=== PATIENT | male | born 1935 | race Caucasian/White ===

== ENCOUNTER → 2019-10-29 | Outpatient (CLI) | payer MEDICARE | END | disposition home or self-care (01) | LOC: RAH 12:32 | PROVIDERS: ATTEND Family Medicine | DX: J47.9 Bronchiectasis, uncomplicated (principal); I51.7 Cardiomegaly; M95.4 Acquired deformity of chest and rib; R04.2 Hemoptysis | CPT/HCPCS: 71250 ==

== ENCOUNTER 2020-10-01 13:08 | Emergency (ER) | payer MEDICARE ==
[2020-10-01 13:44] LABS: APPEARANCE,URINE Clear (CLEAR); BILIRUBIN,URINE Negative (NEGATIVE); COLOR,URINE Yellow (YELLOW); GLUCOSE, URINE (UA) Negative (NEGATIVE); KETONES,URINE Negative (NEGATIVE); LEUKOCYTE ESTERASE ,URINE Negative (NEGATIVE); NITRATE,URINE Negative (NEGATIVE); OCCULT BLOOD,URINE Negative (NEGATIVE); PROTEIN,URINE Negative (NEGATIVE); UROBILINOGEN,URINE 0.2 mg/dL (0.2-1.0)
[2020-10-01 13:53] LABS: BASOPHILS % (AUTO) 0.4 % (0.0-5.0); EOSINOPHILS % (AUTO) 0.4 % (0.0-8.0); HEMATOCRIT 34.6 % (42-54); LYMPHOCYTES % (AUTO) 10.9 % (21.0-51.0); MEAN CORPUSCULAR HEMOGLOBIN 34.4 pg (27.0-33.0); MEAN CORPUSCULAR HGB CONC 34.7 g/dL (32.0-36.0); MEAN CORPUSCULAR VOLUME 99.1 fL (79-99); MONOCYTES % (AUTO) 8.8 % (3.0-13.0); NEUTROPHILS % (AUTO) 79.1 % (40.0-77.0); PLATELET COUNT (AUTO) 143 K/uL (130-400); RED BLOOD CELL COUNT(AUTO) 3.49 MIL/uL (4.50-6.20); RED CELL DISTRIBUTION WIDTH 12.9 % (11.0-15.5); WHITE BLOOD COUNT (AUTO) 4.8 K/uL (4.8-10.8)
[2020-10-01 14:06] LABS: CREATININE 1.2 mg/dL (0.5-1.5); POTASSIUM 3.7 mmol/L (3.5-5.1)
[2020-10-01 14:11] LABS: ALBUMIN 4.2 g/dL (3.5-5.0); TOTAL PROTEIN, SERUM 7.1 g/dL (6.0-8.3)
== END 2020-10-01 15:00 | disposition home or self-care (01) ==
LOC: EDH 13:08
DX: R33.9 Retention of urine, unspecified (principal); I10 Essential (primary) hypertension; I50.9 Heart failure, unspecified
CPT/HCPCS: 36415; 51702; 80053; 81003; 85025

== ENCOUNTER → 2020-10-27 | Outpatient (CLI) | payer MEDICARE | END | disposition home or self-care (01) | LOC: RAH 10-25 10:47 | PROVIDERS: ATTEND Urology | DX: C61 Malignant neoplasm of prostate (principal); R80.9 Proteinuria, unspecified | CPT/HCPCS: 78306; A9503 ==

== ENCOUNTER → 2020-11-07 | Outpatient (CLI) | payer MEDICARE ==
[~2020-11-07] MED LIST: IOHEXOL 350 MG/ML 100ML INFUS..BTL IV ONE
== END | disposition home or self-care (01) ==
LOC: RAH 09:49
PROVIDERS: ATTEND Urology
DX: C61 Malignant neoplasm of prostate (principal); N28.1 Cyst of kidney, acquired; K40.90 Unilateral inguinal hernia, without obstruction or gangrene, not specified as recurrent; J47.9 Bronchiectasis, uncomplicated; M51.36 Other intervertebral disc degeneration, lumbar region; M16.12 Unilateral primary osteoarthritis, left hip
CPT/HCPCS: 74177; Q9967

== ENCOUNTER 2020-11-19 06:00 | Emergency (ER) | payer MEDICARE | END 2020-11-19 06:55 | disposition home or self-care (01) | LOC: EDH 06:00 | DX: T83.031A Leakage of indwelling urethral catheter, initial encounter (principal); I11.0 Hypertensive heart disease with heart failure; I50.9 Heart failure, unspecified; Z98.890 Other specified postprocedural states | CPT/HCPCS: 99281 ==

== ENCOUNTER 2021-01-04 07:18 | Day surgery (SDC) | payer MEDICARE ==
[2020-12-29 13:12] LABS: BASOPHILS % (AUTO) 0.4 % (0.0-5.0); EOSINOPHILS % (AUTO) 1.7 % (0.0-8.0); HEMATOCRIT 37.4 % (42-54); MEAN CORPUSCULAR HEMOGLOBIN 34.4 pg (27.0-33.0); MEAN CORPUSCULAR HGB CONC 33.7 g/dL (32.0-36.0); MEAN CORPUSCULAR VOLUME 102.2 fL (79-99); MONOCYTES % (AUTO) 6.5 % (3.0-13.0); NEUTROPHILS % (AUTO) 78.5 % (40.0-77.0); PLATELET COUNT (AUTO) 187 K/uL (130-400); RED BLOOD CELL COUNT(AUTO) 3.66 MIL/uL (4.50-6.20); RED CELL DISTRIBUTION WIDTH 12.9 % (11.0-15.5); WHITE BLOOD COUNT (AUTO) 7.8 K/uL (4.8-10.8)
[2020-12-29 13:20] LABS: CREATININE 1.3 mg/dL (0.5-1.5); POTASSIUM 4.5 mmol/L (3.5-5.1)
[2020-12-29 13:24] LABS: INR 1.48 (0.85-1.15); PROTHROMBIN TIME 15.6 SEC (9.6-11.6)
[2020-12-29 13:25] LABS: PARTIAL THROMBOPLASTIN TIME 27.5 SEC (26.3-35.5)
[2020-12-29 14:01] LABS: APPEARANCE,URINE Clear (CLEAR); BILIRUBIN,URINE Negative (NEGATIVE); COLOR,URINE Yellow (YELLOW); GLUCOSE, URINE (UA) Negative (NEGATIVE); KETONES,URINE Negative (NEGATIVE); LEUKOCYTE ESTERASE ,URINE Moderate (NEGATIVE); NITRATE,URINE Positive (NEGATIVE); OCCULT BLOOD,URINE Small (NEGATIVE); PROTEIN,URINE POS 1+ mg/dL (NEGATIVE)
[2020-12-29 14:10] LABS: BACTERIA,URINE Many /HPF (None Seen)
[2020-12-29 14:11] LABS: SQUAMOUS EPITHELIAL CELL,UR 0-2 /HPF (0-2)
[2021-01-03 14:35] VITALS: BP 155/75
[~2021-01-04] VITALS: Ht 182.9 cm; Wt 74.6 kg
[2021-01-04] VITALS (25 sets, daily range): BP systolic 131–161; BP diastolic 73–94
[2021-01-04] MEDS ORDERED: LACTATED RINGERS 1000ML 1,000 ML IV ONE ×2 (07:36→08:16)
[2021-01-04] MEDS ORDERED: GENTAMICIN SULFATE 240 MG in 0.9%NACL 100ML 100 ML IV SCH (08:00)
[2021-01-04] MEDS: CEFTRIAXONE 1G VIAL IVP SCH ×2 (08:20→09:15)
[2021-01-04] MEDS ORDERED: TADA5TAB PO (08:23)
[2021-01-04] MEDS ORDERED: furosemide PO (08:23)
[2021-01-04] MEDS ORDERED: levaquin PO (08:23)
[2021-01-04] MEDS ORDERED: LEVO50CA4 PO (08:23)
[2021-01-04] MEDS ORDERED: DIGO250T73 PO (08:23)
[2021-01-04] MEDS ORDERED: ENAL10TA18 PO (08:23)
[2021-01-04] MEDS ORDERED: ATEN25TA PO (08:23)
[2021-01-04] MEDS ORDERED: WARF3TAB59 PO (08:23)
[2021-01-04 08:36] LABS: INR 1.27 (0.85-1.15); PROTHROMBIN TIME 13.5 SEC (9.6-11.6)
[2021-01-04 08:37] LABS: PARTIAL THROMBOPLASTIN TIME 29.5 SEC (26.3-35.5)
[2021-01-04] MEDS ORDERED: DEXAMETHASONE SOD PHOSPHATE 10MG/ML 1ML VIAL ONE (08:40)
[2021-01-04] MEDS ORDERED: MIDAZOLAM HCL 1 MG/ML 2ML VIAL ONE (08:40)
[2021-01-04] MEDS ORDERED: SUCCINYLCHOLINE 200MG/10ML SYR ONE (08:40)
[2021-01-04] MEDS ORDERED: ONDANSETRON 4MG INJ ONE (08:40)
[2021-01-04] MEDS ORDERED: LIDOCAINE PF 100MG/5ML (2%) SYRINGE 5ML ONE (08:40)
[2021-01-04] MEDS ORDERED: PROPOFOL 10 MG/ML 20ML VIAL IV ONE (08:40)
[2021-01-04] MEDS ORDERED: FENTANYL CITRATE PF 50 MCG/1 ML 2ML VIAL ONE (08:41)
[2021-01-04] MEDS ORDERED: ROCURONIUM 10MG/1ML SYR 10 MG/ML ML ONE (08:41)
[2021-01-04] MEDS ORDERED: EPHEDRINE SULFATE 50 MG/ML AMPULE ONE (09:23)
[2021-01-04] MEDS ORDERED: NEOSTIGMINE 5MG/5ML SYR IV ONE (10:53)
[2021-01-04] MEDS ORDERED: GLYCOPYRROLATE 1 MG/5 ML SYRINGE ONE (10:53)
== END 2021-01-04 18:48 | disposition home or self-care (01) ==
LOC: DAH 07:18
PROVIDERS: ATTEND Urology
DX: N40.1 Benign prostatic hyperplasia with lower urinary tract symptoms (principal); R33.9 Retention of urine, unspecified; I11.0 Hypertensive heart disease with heart failure; I50.9 Heart failure, unspecified; E11.9 Type 2 diabetes mellitus without complications; M19.90 Unspecified osteoarthritis, unspecified site; J42 Unspecified chronic bronchitis; I48.91 Unspecified atrial fibrillation; E03.9 Hypothyroidism, unspecified; Z79.01 Long term (current) use of anticoagulants; Z79.899 Other long term (current) drug therapy; Z20.828 Contact with and (suspected) exposure to other viral communicable diseases
CPT/HCPCS: 36415 ×3; 52648; 55700; 71045; 74018; 76942; 80048; 80162; 81001; 84153; 84154; 85025; 85610 ×2; 85730 ×2; 87077; 87088; 87186; 87426; 88305; 93005; A4215 ×2; A4221; A4222; A4223; A4354; A4358; A4600; A4663; A6260; C1769; C9803 ×2; J0330; J0696; J1100; J1580; J2001; J2250; J2405; J2704; J2710; J3010; J3490 ×2; J7120 ×3; U0003 ×2

== ENCOUNTER 2021-10-03 23:38 | Emergency (ER) | payer MEDICARE ==
[~2021-10-03] VITALS: Ht 182.9 cm; Wt 74.8 kg
[~2021-10-03 23:38] MED LIST changes: +ATEN25TA PO; +DIGO250T73 PO; +ENAL10TA18 PO; -IOHEXOL 350 MG/ML 100ML INFUS..BTL IV ONE; +LEVO50CA4 PO; +TADA5TAB PO; +WARF3TAB59 PO; +furosemide PO; +levaquin PO
[2021-10-04 01:06] LABS: BASOPHILS % (AUTO) 0.5 % (0.0-5.0); EOSINOPHILS % (AUTO) 3.6 % (0.0-8.0); LYMPHOCYTES % (AUTO) 12.1 % (21.0-51.0); MEAN CORPUSCULAR HEMOGLOBIN 34.4 pg (27.0-33.0); MEAN CORPUSCULAR HGB CONC 34.1 g/dL (32.0-36.0); MEAN CORPUSCULAR VOLUME 101.1 fL (79-99); MONOCYTES % (AUTO) 7.9 % (3.0-13.0); NEUTROPHILS % (AUTO) 75.6 % (40.0-77.0); PLATELET COUNT (AUTO) 158 K/uL (130-400); RED BLOOD CELL COUNT(AUTO) 3.66 MIL/uL (4.50-6.20); WHITE BLOOD COUNT (AUTO) 6.4 K/uL (4.8-10.8)
[2021-10-04 01:19] LABS: CREATININE 1.1 mg/dL (0.5-1.5); POTASSIUM 4.1 mmol/L (3.5-5.1)
[2021-10-04 01:23] LABS: ALBUMIN 4.3 g/dL (3.5-5.0); BILIRUBIN,TOTAL 0.9 mg/dL (0.2-1.0); TOTAL PROTEIN, SERUM 7.7 g/dL (6.0-8.3)
[2021-10-04 01:30] LABS: B-TYPE NATRIURETIC PEPTIDE 1430 pg/mL (0-100)
[2021-10-04 02:59] VITALS: BP 156/74
== END 2021-10-04 03:00 | disposition home or self-care (01) ==
LOC: EDH 23:38
DX: S80.812A Abrasion, left lower leg, initial encounter (principal); R60.0 Localized edema; I11.0 Hypertensive heart disease with heart failure; I50.9 Heart failure, unspecified; Z79.01 Long term (current) use of anticoagulants; Z79.899 Other long term (current) drug therapy; Z85.46 Personal history of malignant neoplasm of prostate; W22.8XXA Striking against or struck by other objects, initial encounter; Y93.89 Activity, other specified; Y92.038 Other place in apartment as the place of occurrence of the external cause; Y99.8 Other external cause status
CPT/HCPCS: 36415; 80053; 83880; 84484; 85025

== ENCOUNTER → 2021-10-25 | Outpatient (CLI) | payer MEDICARE | END | disposition home or self-care (01) | LOC: SHCH 13:22 | PROVIDERS: ATTEND Internal Medicine Cardiovascular Disease | DX: I08.0 Rheumatic disorders of both mitral and aortic valves (principal); I11.9 Hypertensive heart disease without heart failure; I73.9 Peripheral vascular disease, unspecified; I87.2 Venous insufficiency (chronic) (peripheral) | CPT/HCPCS: 93306; 93356; 93925; 93970 ==